=== PATIENT | male | born 1975 | race Caucasian/White ===

== ENCOUNTER 2021-09-21 19:50 | Emergency (ER) | payer OTHER ==
[2021-09-21 20:00] VITALS: BP 148/97
[2021-09-21] MEDS ORDERED: BUPIVACAINE 0.5% PF 10 ML VIAL SUBQ STA (20:13)
--- NOTE | 2021-09-21 20:14 | ED Physician Documentation ---
PD HPI LOWER EXT INJURY - Stated complaint Stated Complaint: FALL,BIG TOE PX - Chief complaint Chief Complaint: Ext Problem - History obtained from History obtained from: Patient - Additional information Additional information: He was walking in his garage in house shoes and was holding some pink cancer did not see pieces of trim on the floor and ran into them and then fell forward onto his knees. Knee pain is mild but right big toe pain is severe. No other injuries. Review of Systems Constitutional: reports: Reviewed and negative Ears: reports: Reviewed and negative Throat: reports: Reviewed and negative Cardiac: reports: Reviewed and negative PD PAST MEDICAL HISTORY - Past Medical History Past Medical History: No Cardiovascular: None Respiratory: None Neuro: None Endocrine/Autoimmune: None GI: GERD : None HEENT: None Psych: None Musculoskeletal: None Derm: None - Past Surgical History Past Surgical History: No - Present Medications Home Medications: Ambulatory Orders Medication Instructions Recorded Confirmed Ibuprofen [Motrin] 800 mg PO Q8H PRN #30 tablet 11/28/15 raNITIdine HCL [Heartburn Relief] 75 mg PO DAILY 11/28/15 11/28/15 - Allergies Allergies/Adverse Reactions: Allergies Allergy/AdvReac Type Severity Reaction Status Date / Time No Known Drug Allergies Allergy Verified 09/21/21 20:00 - Social History Does the pt smoke?: No Smoking Status: Never smoker Does the pt drink ETOH?: Yes Does the pt have substance abuse?: No - Immunizations Immunizations are current?: Yes - POLST Patient has POLST: No PD ED PE NORMAL - Vitals Vital signs reviewed: Yes - General General: Alert and oriented X 3, No acute distress - Extremities Extremities: Other (Both knees are nontender with full range of motion. The right big toe is bruised and tender without subungual hematoma. Unable to range it due to pain.) - Neuro Neuro: Alert and oriented X 3, Normal speech - Psych Psych: Normal mood, Normal affect Results - Vitals Vitals: Vital Signs - 24 hr 09/21/21 09/21/21 09/21/21 19:58 20:05 20:52 Temperature 36.6 C Heart Rate 123 H Respiratory 18 17 16 Rate Blood Pressure 148/97 H O2 Saturation 96 Oxygen O2 Source Room air - Rads (name of study) R 1st Toe XR Radiology: EMP read contemporaneously (NAD) Procedures - Regional nerve block Nerve block site: Digital - note digit(s) (Digital block of the right great toe was done with 0.5% Marcaine without epinephrine for pain control) PD MEDICAL DECISION MAKING - ED course ED course: 46-year-old gentleman presents with a right big toe injury. X-ray negative. Block for comfort was very effective. He was given 4 Vicodin to go. Departure - Departure Disposition: 01 Home, Self Care Clinical Impression: Sprain of right great toe Qualifiers: Encounter type: initial encounter Qualified Code(s): S93.501A - Unspecified sprain of right great toe, initial encounter Condition: Good Record reviewed to determine appropriate education?: Yes Instructions: ED Sprain Toe Comments: [place]. Return for new or worsening splint symptoms. Tylenol and/or ibuprofen as needed for pain. For the hydrocodone for tonight you can take 1-2 every 6 hours. Discharge Date/Time: 09/21/21 20:53
[2021-09-21] MEDS ORDERED: HYDROcod/ACET 5/325 Prepack 4 PO STA (20:33)
--- NOTE | 2021-09-21 22:14 | XRAY Report ---
PROCEDURE: Toe(s) RT INDICATIONS: toe inj TECHNIQUE: AP view of the right foot and 2 additional views of the great toe acquired. COMPARISON: None. FINDINGS: Bones: No fractures or dislocations. There is a subcortical lucency along the medial aspect of the first metatarsal head which may represent a degenerative subchondral cyst versus a small erosion. Soft tissues: No suspicious soft tissue densities. IMPRESSION: 1. No fracture or dislocation. Reviewed by: Raj Brandon MD on 09/21/2021 10:13 PM PDT Approved by: Raj Brandon MD on 09/21/2021 10:13 PM PDT Station ID: [id number]
== END 2021-09-21 20:53 | disposition home or self-care (01) ==
LOC: ED 19:50
DX: S93.501A Unspecified sprain of right great toe, initial encounter (principal); W22.09XA Striking against other stationary object, initial encounter; Y93.01 Activity, walking, marching and hiking; Y92.008 Other place in unspecified non-institutional (private) residence as the place of occurrence of the external cause
CPT/HCPCS: 64450; 99282

== ENCOUNTER 2022-09-08 09:10 | Day surgery (SDC) | payer OTHER ==
[2022-09-08] MEDS ORDERED: LACTATED RINGERS 1,000 ML IV ONE ×2 (09:30→10:38)
[2022-09-08] MEDS ORDERED: PROPOFOL 500 MG/50 ML 500 MG/50 ML VIAL ONE (09:50)
--- NOTE | 2022-09-08 09:51 | ANESTHESIA ---
Pre-Anesthesia VS, & Labs - Diagnosis Screening exam - Procedure colonoscopy Vital Signs: Temp Pulse Resp BP Pulse Ox O2 Flow Rate 36.2 C L 79 16 153/107 H 99 09/08/22 09:15 09/08/22 09:15 09/08/22 09:15 09/08/22 09:15 09/08/22 09:15 Height: 5 ft 7 in Weight (kg): 89.8 kg Body Mass Index: 31.0 BMI Classification: Obese - NPO >8 hours Home Medications and Allergies Home Medications: Ambulatory Orders Omeprazole 20 mg PO DAILY 09/07/22 Omeprazole 20 mg PO DAILY 09/07/22 Allergies/Adverse Reactions: Allergies Allergy/AdvReac Type Severity Reaction Status Date / Time No Known Drug Allergies Allergy Verified 09/07/22 14:04 Anes History & Medical History - Anesthetic History Anesthesia Complications: reports: No previous complications - Medical History Cardiovascular: reports: None Pulmonary: reports: Sleep apnea (uses oral device) Gastrointestinal: reports: GERD Urinary: reports: Kidney stones Neuro: reports: None Musculoskeletal: reports: None Endocrine/Autoimmune: reports: None Blood Disorders: reports: None Skin: reports: None Smoking Status: Never smoker Psychosocial: reports: No issues indicated History of Cancer?: No - Surgical History General: reports: Other Urologic: reports: Kidney stents Exam General: Alert, Oriented x3, Cooperative, No acute distress Dental: WNL Mouth Openin Fingerbreadth Neck Mobility: Normal Mallampati classification: III Thyromental Distance: 4-6 cm Mental/Cognitive Status: Alert/Oriented X3, Normal for patient Plan Anesthesia Type: General, Total IV Consent for Procedure(s) Verified and Reviewed: Yes Code Status: Attempt Resuscitation ASA classification: 2-Mild systemic disease Is this case an emergency?: No
[2022-09-08 11:00] VITALS: BP 112/73
--- NOTE | 2022-09-08 13:10 | ANESTHESIA POST OP EVALUATION ---
Anesthesia Post Eval - Post Anesthesia Eval Vitals: Last Vital Signs Temp 36.7 C 09/08/22 10:58 Pulse 76 09/08/22 10:58 Resp 18 09/08/22 10:58 BP 112/73 09/08/22 10:58 Pulse Ox 98 09/08/22 10:58 O2 Flow Rate CV Function Including HR & BP: Stable Pain Control: Satisfactory Nausea & Vomiting: Negative Mental Status: Baseline Respiratory Status: Airway Patent Hydration Status: Satisfactory Anesthesia Complications: None
== END 2022-09-08 09:11 | disposition home or self-care (01) ==
LOC: SDS 09:10
PROVIDERS: ATTEND Surgery
DX: Z12.11 Encounter for screening for malignant neoplasm of colon (principal); K64.8 Other hemorrhoids; D17.79 Benign lipomatous neoplasm of other sites; E66.9 Obesity, unspecified; Z68.31 Body mass index [BMI] 31.0-31.9, adult; G47.30 Sleep apnea, unspecified
CPT/HCPCS: 45378; J7120